=== PATIENT | female | born 1990 | race Hispanic/Latino ===

== ENCOUNTER 2021-07-16 02:09 | Inpatient (IN) | payer MEDICAID ==
[~2021-07-16] VITALS: Ht 157.5 cm; Wt 45.4 kg
[2021-07-16] VITALS (8 sets, daily range): BP systolic 124–154; BP diastolic 64–90
[2021-07-16 02:23] LABS: BASOPHILS % (AUTO) 0.4 % (0.0-5.0); EOSINOPHILS % (AUTO) 0.1 % (0.0-8.0); HEMATOCRIT 37.9 % (36-48); LYMPHOCYTES % (AUTO) 13.6 % (21.0-51.0); MEAN CORPUSCULAR VOLUME 96.9 fL (79-99); MONOCYTES % (AUTO) 2.5 % (3.0-13.0); NEUTROPHILS % (AUTO) 82.9 % (40.0-77.0); PLATELET COUNT (AUTO) 229 K/uL (130-400); RED BLOOD CELL COUNT(AUTO) 3.91 MIL/uL (4.00-5.50); RED CELL DISTRIBUTION WIDTH 12.7 % (11.0-15.5); WHITE BLOOD COUNT (AUTO) 13.4 K/uL (4.8-10.8)
[2021-07-16 02:39] LABS: INR 1.22 (0.85-1.15); PROTHROMBIN TIME 13.1 SEC (9.6-11.6)
[2021-07-16 02:40] LABS: PARTIAL THROMBOPLASTIN TIME 25.3 SEC (26.3-35.5)
[2021-07-16 02:41] LABS: BILIRUBIN,URINE Small (NEGATIVE); COLOR,URINE Dark Yellow (YELLOW); GLUCOSE, URINE (UA) >=1000 mg/dL (NEGATIVE); KETONES,URINE 15 mg/dL (NEGATIVE); LEUKOCYTE ESTERASE ,URINE Trace (NEGATIVE); NITRATE,URINE Negative (NEGATIVE); OCCULT BLOOD,URINE Large (NEGATIVE); PROTEIN,URINE POS 2+ mg/dL (NEGATIVE)
[2021-07-16 02:42] LABS: APPEARANCE,URINE SLIGHTLY CLOUDY (CLEAR)
[2021-07-16 02:43] LABS: HCG,QUAL RESULT NEGATIVE (NEGATIVE)
[2021-07-16 02:47] LABS: ALANINE AMINOTRANSFERASE 389 U/L (12-78); ASPARTATE AMINOTRANSFERASE 248 U/L (10-37); BILIRUBIN,TOTAL 1.2 mg/dL (0.2-1.0); CARBON DIOXIDE 26 mmol/L (21-32); CHLORIDE 103 mmol/L (101-111); CREATININE 0.8 mg/dL (0.5-1.5); GLOMERULAR FILTR. RATE CALC 88 mL/min (>60); GLUCOSE,RANDOM 198 mg/dL (70-105); SODIUM SERUM 139 mmol/L (136-145); TOTAL PROTEIN, SERUM 7.1 g/dL (6.0-8.3); UREA NITROGEN, BLOOD 18 mg/dL (7-18)
[2021-07-16] MEDS ORDERED: ONDANSETRON 4MG INJ ONE (02:47)
[2021-07-16 02:48] LABS: BACTERIA,URINE None Seen /HPF (None Seen); RBC,URINE 51-100 /HPF (0-1); SQUAMOUS EPITHELIAL CELL,UR Moderate /HPF (0-2); YEAST,URINE BUDDING None Seen /HPF (None Seen)
[2021-07-16] MEDS ORDERED: FAMOTIDINE 20MG VIAL IV ONE ×2 (02:48→03:30)
[2021-07-16] MEDS ORDERED: 0.9%NACL 1000ML 1,000 ML IV ONE (02:48)
[2021-07-16 02:49] LABS: AMPHET/METH SCREEN,URINE NEGATIVE (NEGATIVE); BARBITURATE SCREEN, URINE NEGATIVE (NEGATIVE); BENZODIAZEPINES SCREEN,URINE NEGATIVE (NEGATIVE); CANNABINOID SCREEN,URINE POSITIVE (NEGATIVE); COCAINE SCREEN,URINE POSITIVE (NEGATIVE); OPIATE SCREEN,URINE NEGATIVE (NEGATIVE); PHENCYCLIDINE SCREEN,URINE NEGATIVE (NEGATIVE)
[2021-07-16 02:50] LABS: ACETAMINOPHEN < 1 mcg/mL (10-30); SALICYLATE < 2.8 mg/dL (2.8-20.0)
[2021-07-16] MEDS ORDERED: DEXTROSE 5%-WATER 200 ML IV ONE (03:25)
[2021-07-16] MEDS ORDERED: ONDANSETRON 4MG INJ IV PRN (03:30)
[2021-07-16] MEDS ORDERED: DEXTROSE 5% IV ONE ×6 (03:30)
[2021-07-16] MEDS ORDERED: WATER IV ONE ×6 (03:30)
[2021-07-16] MEDS ORDERED: ACETYLCYSTEINE IV ONE ×6 (03:30)
[2021-07-16] MEDS ORDERED: 0.9%NACL 1000ML 1,002 ML IV ONE ×2 (03:30)
[2021-07-16] MEDS ORDERED: ONDANSETRON 4MG INJ IVP ONE (03:30)
[2021-07-16] MEDS ORDERED: ACETYLCYSTEINE 20% 200MG/ML 4ML VIAL ONE (03:36)
[2021-07-16 04:25] LABS: ABG BASE EXCESS -4.2 mmol/L (-2.0-3.0); ABG HCO3 19.7 mmol/L (21.0-28.0); ABG OXYGEN SATURATION 97.2 % (95.0-99.0); ABG PCO2 33 mmHg (32-45)
[2021-07-16] MEDS: LACTATED RINGERS 1000ML 1,000 ML IV SCH ×2 (05:14→13:30)
[2021-07-16 06:07] LABS: BASOPHILS % (AUTO) 0.5 % (0.0-5.0); EOSINOPHILS % (AUTO) 0.4 % (0.0-8.0); HEMATOCRIT 40.6 % (36-48); LYMPHOCYTES % (AUTO) 15.7 % (21.0-51.0); MEAN CORPUSCULAR HEMOGLOBIN 32.5 pg (27.0-33.0); MEAN CORPUSCULAR HGB CONC 32.8 g/dL (32.0-36.0); MEAN CORPUSCULAR VOLUME 99.3 fL (79-99); MONOCYTES % (AUTO) 4.1 % (3.0-13.0); PLATELET COUNT (AUTO) 241 K/uL (130-400); RED BLOOD CELL COUNT(AUTO) 4.09 MIL/uL (4.00-5.50); RED CELL DISTRIBUTION WIDTH 12.6 % (11.0-15.5); WHITE BLOOD COUNT (AUTO) 11.5 K/uL (4.8-10.8)
[2021-07-16 06:20] LABS: INR 1.43 (0.85-1.15); PROTHROMBIN TIME 15.1 SEC (9.6-11.6)
[2021-07-16 06:21] LABS: PARTIAL THROMBOPLASTIN TIME 27.3 SEC (26.3-35.5)
[2021-07-16 06:26] LABS: ALBUMIN 3.6 g/dL (3.5-5.0); CREATININE 0.8 mg/dL (0.5-1.5); POTASSIUM 3.7 mmol/L (3.5-5.1); TOTAL PROTEIN, SERUM 6.6 g/dL (6.0-8.3)
[2021-07-16] MEDS ORDERED: ACETYLCYSTEINE IV SCH ×2 (08:30)
[2021-07-16] MEDS ORDERED: WATER IV SCH ×2 (08:30)
[2021-07-16] MEDS ORDERED: DEXTROSE 5% IV SCH ×2 (08:30)
[2021-07-16] MEDS ORDERED: FAMOTIDINE 20MG TAB PO SCH (09:00)
[2021-07-16] MEDS ORDERED: LEVOFLOXACIN 500 MG/D5W 100 ML 100 ML IV SCH (18:30)
== END 2021-07-16 18:59 | disposition left against medical advice (07) | DRG 817 ==
LOC: EDH 02:09 → EDHIP 03:24
PROVIDERS: ADMIT Internal Medicine; ATTEND Internal Medicine
DX: T39.1X2A Poisoning by 4-Aminophenol derivatives, intentional self-harm, initial encounter (principal); B17.9 Acute viral hepatitis, unspecified; T39.312A Poisoning by propionic acid derivatives, intentional self-harm, initial encounter; F12.90 Cannabis use, unspecified, uncomplicated; F17.210 Nicotine dependence, cigarettes, uncomplicated; F14.90 Cocaine use, unspecified, uncomplicated; Y92.89 Other specified places as the place of occurrence of the external cause; Z56.0 Unemployment, unspecified
CPT/HCPCS: 36415; 36600; 76705; 80053; 80305; 81001; 81025; 82803; 83615; 85025; 85610; 85730; 87088; 93005; G0378; G0481; J0132; J2405; J3490; J7030; J7060; J7070; J7120; J7608

== ENCOUNTER 2022-02-15 08:54 | Emergency (ER) | payer MEDICAID ==
[~2022-02-15] VITALS: Ht 157.5 cm; Wt 59.0 kg
[2022-02-15] MEDS ORDERED: ONDANSETRON 4MG INJ IVP SCH (09:30)
[2022-02-15] MEDS ORDERED: HYOSCYAMINE SULFATE 0.125 MG TAB.SUBL SL SCH (09:30)
[2022-02-15] MEDS ORDERED: FAMOTIDINE 20MG VIAL IV SCH (09:30)
[2022-02-15 09:40] LABS: BASOPHILS % (AUTO) 0.6 % (0.0-5.0); EOSINOPHILS % (AUTO) 0.5 % (0.0-8.0); HEMATOCRIT 40.5 % (36-48); MEAN CORPUSCULAR HEMOGLOBIN 32.8 pg (27.0-33.0); MEAN CORPUSCULAR HGB CONC 34.1 g/dL (32.0-36.0); MEAN CORPUSCULAR VOLUME 96.2 fL (79-99); NEUTROPHILS % (AUTO) 73.3 % (40.0-77.0); PLATELET COUNT (AUTO) 309 K/uL (130-400); RED BLOOD CELL COUNT(AUTO) 4.21 MIL/uL (4.00-5.50); RED CELL DISTRIBUTION WIDTH 12.8 % (11.0-15.5); WHITE BLOOD COUNT (AUTO) 10.5 K/uL (4.8-10.8)
[2022-02-15 09:41] LABS: HCG,QUAL RESULT POSITIVE (NEGATIVE)
[2022-02-15 09:42] LABS: APPEARANCE,URINE CLEAR (CLEAR); BILIRUBIN,URINE NEGATIVE (NEGATIVE); COLOR,URINE YELLOW (YELLOW); GLUCOSE, URINE (UA) NEGATIVE (NEGATIVE); KETONES,URINE NEGATIVE (NEGATIVE); LEUKOCYTE ESTERASE ,URINE NEGATIVE (NEGATIVE); NITRATE,URINE NEGATIVE (NEGATIVE); OCCULT BLOOD,URINE TRACE-INTACT (NEGATIVE); PROTEIN,URINE NEGATIVE (NEGATIVE); UROBILINOGEN,URINE 0.2 mg/dL (0.2-1.0)
[2022-02-15 09:53] LABS: BACTERIA,URINE Rare /HPF (None Seen); RBC,URINE 0-1 /HPF (0-1); SQUAMOUS EPITHELIAL CELL,UR Rare /HPF (0-2); WBC,URINE 0-1 /HPF (0-1)
[2022-02-15 09:54] LABS: CREATININE 0.6 mg/dL (0.5-1.5); POTASSIUM 3.7 mmol/L (3.5-5.1)
[2022-02-15 09:58] LABS: ALBUMIN 3.6 g/dL (3.5-5.0); BILIRUBIN,TOTAL 0.4 mg/dL (0.2-1.0); TOTAL PROTEIN, SERUM 7.7 g/dL (6.0-8.3)
[2022-02-15] MEDS ORDERED: SUCRALFATE 1 GM TABLET PO SCH (12:30)
[2022-02-15] MEDS ORDERED: MAG/ALUM/SIMETH 30 ML UDCUP PO SCH (12:30)
[2022-02-15 13:02] VITALS: BP 116/86
[2022-02-15] MEDS ORDERED: ONDA4TAB10 PO (13:08)
[2022-02-15] MEDS ORDERED: FAMO-136 PO (13:08)
[2022-02-15] MEDS ORDERED: SUCR1TAB28 PO (13:08)
[2022-02-15] MEDS ORDERED: PREN-61 PO (13:08)
== END 2022-02-15 13:41 | disposition home or self-care (01) ==
LOC: EDH 08:54
DX: O99.611 Diseases of the digestive system complicating pregnancy, first trimester (principal); K21.00 Gastro-esophageal reflux disease with esophagitis, without bleeding; K29.70 Gastritis, unspecified, without bleeding; O20.8 Other hemorrhage in early pregnancy; Z3A.13 13 weeks gestation of pregnancy
CPT/HCPCS: 36415; 76801; 80053; 81001; 81025; 83690; 85025; 96374; 96375; 99284; J2405; S0028; J3490

== ENCOUNTER 2022-07-05 08:14 | Observation (INO) | payer MEDICAID ==
[~2022-07-05] VITALS: Ht 157.5 cm; Wt 54.4 kg
[~2022-07-05 08:14] MED LIST: FAMO-136 PO; ONDA4TAB10 PO; PREN-61 PO; SUCR1TAB28 PO
[2022-07-05 08:15] VITALS: BP 150/76
[2022-07-05] MEDS: LACTATED RINGERS 1000ML 1,000 ML IV PRN ×3 (08:30→11:50)
[2022-07-05 09:21] LABS: APPEARANCE,URINE CLEAR (CLEAR); BILIRUBIN,URINE SMALL (NEGATIVE); COLOR,URINE YELLOW (YELLOW); GLUCOSE, URINE (UA) NEGATIVE (NEGATIVE); KETONES,URINE >=80 mg/dL (NEGATIVE); LEUKOCYTE ESTERASE ,URINE SMALL (NEGATIVE); NITRATE,URINE NEGATIVE (NEGATIVE); OCCULT BLOOD,URINE LARGE (NEGATIVE); PROTEIN,URINE 30 mg/dL (NEGATIVE)
[2022-07-05] MEDS ORDERED: PROMETHAZINE HCL 25 MG/ML 1ML AMPULE IM PRN ×2 (09:30→12:00)
[2022-07-05 09:40] LABS: HEMATOCRIT 32.9 % (36-48); MEAN CORPUSCULAR HGB CONC 34.3 g/dL (32.0-36.0); MEAN CORPUSCULAR VOLUME 90.4 fL (79-99); RED BLOOD CELL COUNT(AUTO) 3.64 MIL/uL (4.00-5.50); RED CELL DISTRIBUTION WIDTH 13.2 % (11.0-15.5); WHITE BLOOD COUNT (AUTO) 12.4 K/uL (4.8-10.8)
[2022-07-05 09:50] LABS: CREATININE 0.6 mg/dL (0.5-1.5); POTASSIUM 3.5 mmol/L (3.5-5.1)
[2022-07-05 09:51] LABS: INR 0.93 (0.85-1.15)
[2022-07-05 09:53] LABS: PARTIAL THROMBOPLASTIN TIME 27.6 SEC (26.3-35.5)
[2022-07-05 09:54] LABS: BACTERIA,URINE Few /HPF (None Seen); SQUAMOUS EPITHELIAL CELL,UR 30-50 /HPF (0-2)
[2022-07-05 10:25] LABS: AMPHET/METH SCREEN,URINE NEGATIVE (NEGATIVE); BARBITURATE SCREEN, URINE NEGATIVE (NEGATIVE); BENZODIAZEPINES SCREEN,URINE NEGATIVE (NEGATIVE); PHENCYCLIDINE SCREEN,URINE NEGATIVE (NEGATIVE)
[2022-07-05 10:27] LABS: CANNABINOID SCREEN,URINE NEGATIVE (NEGATIVE); COCAINE SCREEN,URINE POSITIVE (NEGATIVE)
[2022-07-05 11:20] LABS: RAPID PLASMA REAGIN NONREACTIVE (NONREACTIVE)
[2022-07-05] MEDS: AMPICILLIN 2GM+NS 100ML IV SCH ×2 (11:51→17:56)
[2022-07-05] MEDS ORDERED: MEPERIDINE-PF 50 MG/ML SYG IM PRN (12:00)
== END 2022-07-05 21:20 | disposition home or self-care (01) ==
LOC: EDH 08:14 → LDH 08:15
PROVIDERS: ADMIT Obstetrics & Gynecology; ATTEND Obstetrics & Gynecology
DX: O26.893 Other specified pregnancy related conditions, third trimester (principal); R10.13 Epigastric pain; O99.343 Other mental disorders complicating pregnancy, third trimester; F41.8 Other specified anxiety disorders; O21.2 Late vomiting of pregnancy; O99.333 Smoking (tobacco) complicating pregnancy, third trimester; F17.200 Nicotine dependence, unspecified, uncomplicated; Z3A.33 33 weeks gestation of pregnancy
CPT/HCPCS: 96372; 96365; 96366; 96361; 84550; 80053; 80305; 85027; 85384; 85610; 85730; 86592; 86850; 86900; 86901; 87088; 87340; 86701; 87390; 81001; 36415; 76705; 76805; G0378 ×13; G0379; J2175; J0290 ×2; J7120; 96360

== ENCOUNTER 2022-07-13 11:43 | Observation (INO) | payer MEDICAID ==
[~2022-07-13] VITALS: Ht 152.4 cm; Wt 45.4 kg
[2022-07-13 11:44] VITALS: BP 135/89
[2022-07-13 12:40] LABS: APPEARANCE,URINE CLOUDY (CLEAR); BILIRUBIN,URINE NEGATIVE (NEGATIVE); COLOR,URINE YELLOW (YELLOW); GLUCOSE, URINE (UA) NEGATIVE (NEGATIVE); KETONES,URINE 150 mg/dL (NEGATIVE); LEUKOCYTE ESTERASE ,URINE 75 Leu/uL (NEGATIVE); NITRATE,URINE NEGATIVE (NEGATIVE); PROTEIN,URINE 20 mg/dL (NEGATIVE); UROBILINOGEN,URINE 0.2 mg/dL (0.2-1.0)
[2022-07-13 12:46] LABS: BACTERIA,URINE RARE /HPF (None Seen); MUCUS,URINE RARE LPF (None Seen); OTHER CASTS, URINE 2 /LPF (None Seen); RBC,URINE 26-50 /HPF (0-1); SQUAMOUS EPITHELIAL CELL,UR RARE /HPF (0-2)
[2022-07-13 13:06] LABS: AMPHET/METH SCREEN,URINE NEGATIVE (NEGATIVE); BARBITURATE SCREEN, URINE NEGATIVE (NEGATIVE); BENZODIAZEPINES SCREEN,URINE NEGATIVE (NEGATIVE); CANNABINOID SCREEN,URINE NEGATIVE (NEGATIVE); COCAINE SCREEN,URINE POSITIVE (NEGATIVE); PHENCYCLIDINE SCREEN,URINE NEGATIVE (NEGATIVE)
[2022-07-13] MEDS ORDERED: PANTOPRAZOLE 40 MG TAB DR PO SCH (13:48)
[2022-07-13] MEDS ORDERED: CEFTRIAXONE 1G VIAL IVP SCH (13:52)
[2022-07-13] MEDS ORDERED: MORPHINE 2 MG SYG IVP SCH (14:00)
[2022-07-13] MEDS ORDERED: LACTATED RINGERS 1000ML IV SCH (14:00)
== END 2022-07-13 15:20 | disposition home or self-care (01) ==
LOC: EDH 11:43 → LDH 11:44
PROVIDERS: ADMIT Obstetrics & Gynecology; ATTEND Obstetrics & Gynecology
DX: O26.893 Other specified pregnancy related conditions, third trimester (principal); R10.9 Unspecified abdominal pain; O99.343 Other mental disorders complicating pregnancy, third trimester; F32.A Depression, unspecified; O99.333 Smoking (tobacco) complicating pregnancy, third trimester; F17.200 Nicotine dependence, unspecified, uncomplicated; Z3A.34 34 weeks gestation of pregnancy
CPT/HCPCS: 96374; 96375; 80305; 87088; 81001; G0378 ×4; G0379; J0696; J7120; 96360; 96372